=== PATIENT | female | born 1995 | race Caucasian/White ===

== ENCOUNTER 2018-05-08 01:02 | Emergency (ER) | payer OTHER, BC ==
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
[2018-05-08 01:24] VITALS: BP 142/82; PULSE 98; TEMP 97.6; BMI 32.3
[2018-05-08] MEDS ORDERED: KETOROLAC TROMETHAMINE 60 MG/2 ML VIAL IM ONE (01:54)
[2018-05-08] MEDS ORDERED: KETOROLAC TROMETHAMINE 60 MG/2 ML VIAL ONE (02:17)
== END 2018-05-08 06:00 | disposition home or self-care (01) ==
LOC: JER 01:02
PROC: 3E0233Z Introduction of Anti-inflammatory into Muscle, Percutaneous Approach (ICD-10-PCS; principal; 2018-05-08)
DX: S13.4XXA Sprain of ligaments of cervical spine, initial encounter (principal); V43.52XA Car driver injured in collision with other type car in traffic accident, initial encounter; Y92.414 Local residential or business street as the place of occurrence of the external cause; Y93.89 Activity, other specified; Y99.8 Other external cause status
CPT/HCPCS: 70450-TC; 72125-TC; 73030-TC-LT-FY; 73523-TC-FY; 73562-TC-LT-FY; 84703; 99281-25

== ENCOUNTER 2019-07-12 10:59 | Inpatient (IN) | payer BC ==
[2019-07-07 15:21] VITALS: BMI 40.3
[2019-07-12 11:45] LABS: BASO % 0.4 % (0-2.0); EOS % 0.6 % (0-4.5); HEMATOCRIT 40.1 % (32.4-45.2); HEMOGLOBIN 12.6 GM/dl (10.7-15.3); LYMPH % 23.4 % (8-40); MCH 25.3 pg (25.7-33.7); MCHC 31.5 g/dl (32.0-36.0); MEAN CELL VOLUME 80.4 fl (80-96); MEAN PLT VOLUME 8.8 fl (7.5-11.1); MONO % 5.7 % (3.8-10.2); NEUT % 69.9 % (42.8-82.8); PLATELET COUNT 344 K/MM3 (134-434); RBC 4.99 M/mm3 (3.60-5.2); RDW 13.2 % (11.6-15.6); WHITE BLOOD COUNT 10.7 K/mm3 (4.0-10.8)
[2019-07-12 11:49] LABS: INR 1.34 (0.82-1.09); PROTHROMBIN TIME (PATIENT) 14.9 SEC (10.2-13.0)
[2019-07-12 11:54] LABS: ALBUMIN 3.8 g/dl (3.4-5.0); CALCIUM 8.6 mg/dl (8.5-10); CREATININE 0.5 mg/dl (0.55-1.3); TOT PROT 7.1 g/dl (6.4-8.2)
--- NOTE | 2019-07-12 12:11 | EKG ---
Test Reason : Blood Pressure : / mmHG Vent. Rate : 079 BPM Atrial Rate : 079 BPM P-R Int : 142 ms QRS Dur : 094 ms QT Int : 388 ms P-R-T Axes : 037 055 024 degrees QTc Int : 444 ms NORMAL SINUS RHYTHM WITH SINUS ARRHYTHMIA NORMAL ECG NO PREVIOUS ECGS AVAILABLE Confirmed by Anamaria Siddiqui ([id number]) on 07/12/2019 12:10:54 PM Referred By: Francisco Lopez Confirmed By:Anamaria Siddiqui
[2019-07-12 12:16] LABS: EPITHELIAL CELLS MODERATE /hpf
[2019-07-12] MEDS ORDERED: BUPIVACAINE HCL/PF 2.5 MG/ML - 30 ML VIAL IJ ONE (14:21)
[2019-07-12] MEDS ORDERED: MIDAZOLAM HCL 2 MG/2 ML SINGLE DOSE VIAL ONE ×2 (14:32→16:59)
[2019-07-12] MEDS ORDERED: SODIUM CHLORIDE 0.9% P/F 10 ML VIAL IJ ONE (14:32)
[2019-07-12] MEDS ORDERED: BUPIVACAINE HCL/PF 0.5% (5 MG/ML) 30 ML VIAL IJ ONE (14:32)
[2019-07-12] MEDS ORDERED: PROPOFOL 20 ML ONE (15:10)
[2019-07-12] MEDS ORDERED: ROCURONIUM BROMIDE 50 MG/5 ML SYRINGE ONE (15:12)
[2019-07-12] MEDS ORDERED: ONDANSETRON 4 MG/2 ML VIAL IVPUSH PRN ×2 (15:50→16:53)
[2019-07-12] MEDS ORDERED: PROMETHAZINE HCL 25 MG/1 ML VIAL IVPUSH PRN (15:50)
[2019-07-12] MEDS ORDERED: ACETAMINOPHEN 1000 MG/100 ML VIAL (NON FORMULARY) IVPB ONE (15:51)
[2019-07-12] MEDS ORDERED: BUPIVACAINE HCL/PF 0.25% (2.5MG/ML) 10 ML VIAL IJ ONE ×2 (15:52→16:38)
[2019-07-12] MEDS ORDERED: LACTATED RINGERS SOLUTION 1,000 ML IV SCH (16:00)
[2019-07-12] MEDS ORDERED: GLYCOPYRROLATE 0.2 MG/1 ML VIAL ONE (16:36)
[2019-07-12] MEDS ORDERED: NEOSTIGMINE METHYLSULFATE 0.5 MG/ML - 10 ML MDV ONE (16:36)
[2019-07-12] MEDS ORDERED: ACETAMINOPHEN INJECTION 100 ML IVPB ONE (16:44)
[2019-07-12] MEDS ORDERED: METOCLOPRAMIDE HCL INJECTION 10 MG/2 ML VIAL ONE (16:45)
[2019-07-12] MEDS ORDERED: HYDROmorphone HCL CARPU-JECT 1 MG/1 ML DISP.SYRIN IM PRN (16:53)
[2019-07-12] MEDS ORDERED: SODIUM CHLORIDE 1,000 ML IV SCH (17:00)
[2019-07-12] MEDS ORDERED: SCOPOLAMINE HYDROBROMIDE 1 PATCH PATCH.TD72 ONE (17:04)
--- NOTE | 2019-07-12 17:13 | OP ---
Operative Note - Note: Operative Date: 07/12/19 Pre-Operative Diagnosis: Morbid Obesity Operation: Laparoscopic Vertical Sleeve Gastrectomy. Diagnostic Laparoscopy Findings: Greater curve sleeve gastrectomy performed with #[address] Post-Operative Diagnosis: Same as Pre-op Surgeon: Francisco Lopez Freelance Web Designer: Sergio Meraz Anesthesia: General Specimens Removed: Greater curve of stomach Estimated Blood Loss (mls): 30 Operative Report Dictated: Yes
[2019-07-12] MEDS ORDERED: SCOPOLAMINE HYDROBROMIDE 1 PATCH PATCH.TD72 TD SCH (17:15)
[2019-07-12] MEDS ORDERED: HYDROmorphone HCL CARPU-JECT 1 MG/1 ML DISP.SYRIN IVPUSH PRN (17:16)
[2019-07-12] MEDS: HYDROmorphone HCl 2 MG/ML VIAL ONE ×2 (17:35→17:45)
[2019-07-12] MEDS: METOCLOPRAMIDE HCL INJECTION 10 MG/2 ML VIAL IVPUSH SCH ×2 (17:40→22:02)
[2019-07-12 17:42] LABS: HEMATOCRIT 37.4 % (32.4-45.2); HEMOGLOBIN 12.2 GM/dl (10.7-15.3); MCHC 32.6 g/dl (32.0-36.0); MEAN CELL VOLUME 79.9 fl (80-96); MEAN PLT VOLUME 8.9 fl (7.5-11.1); PLATELET COUNT 279 K/MM3 (134-434); RBC 4.68 M/mm3 (3.60-5.2); RDW 12.9 % (11.6-15.6); WHITE BLOOD COUNT 11.8 K/mm3 (4.0-10.8)
[2019-07-12 17:48] LABS: ALBUMIN 3.6 g/dl (3.4-5.0); BILIRUBIN,TOTAL 0.8 mg/dl (0.2-1); CALCIUM 8.2 mg/dl (8.5-10); CREATININE 0.5 mg/dl (0.55-1.3); POTASSIUM 3.7 mmol/L (3.5-5.1); TOT PROT 6.7 g/dl (6.4-8.2)
--- NOTE | 2019-07-12 20:59 | OP ---
DATE OF OPERATION: 07/12/2019 PREOPERATIVE DIAGNOSIS: Morbid obesity. POSTOPERATIVE DIAGNOSIS: Morbid obesity. PROCEDURE PERFORMED: 1. Laparoscopic vertical sleeve gastrectomy. 2. Diagnostic laparoscopy. OPERATING SURGEON: Francisco Lopez MD CUT ROLL MACHINE OPERATOR: Sergio Meraz MD ANESTHESIA: General. EXPECTED BLOOD LOSS: 30 mL. DISPOSITION: Patient transferred to recovery room in stable condition. DESCRIPTION OF OPERATIVE PROCEDURE: The patient was brought into the operating room, placed on the OR table in supine position. All precautions were taken initially including padding for the back and the feet, and Venodyne boots were placed on both lower extremities. At that point, the abdomen was prepped and draped in the usual manner. A Veress needle was placed in the left upper quadrant, and a pneumoperitoneum was established. Under direct vision with a laparoscopic camera, a number 5 bladeless trocar was then placed in the left upper quadrant. Through that laparoscopic trocar, a laparoscopic camera was placed. Under direct vision, a number 15 trocar was placed in the midline above the umbilicus, and this was a bladeless trocar. This was followed by a number 5 bladeless trocar in the right upper quadrant and a number 5 bladeless trocar below the left costal margin. A Bianca liver retractor was then placed in the epigastrium to retract the left lobe of the liver. The patient was then placed in a 20-degree reverse Trendelenburg position by Anesthesia. Pylorus was noted on the distal stomach, and from that area, 6 cm were measured proximally. Here, the operating surgeon lifted the stomach wall toward the anterior abdominal wall as the sales operations assistant surgeon retracted the gastrocolic ligament inferiorly. The LigaSure device was used to dissect the gastrocolic ligament and the short gastric vessels off the greater curve of the stomach. This continued in the superior and vertical direction until the final short gastric vessels between the superior pole, spleen, and the proximal fundus were divided. At this juncture, Anesthesia advanced into the stomach and into the antrum of the stomach a number 36 bougie. With the bougie held along the lesser curvature, a series of doug was performed with the first two being black load doug 6 cm in length along the bougie. This was then followed by a series of purple doug, also 6 cm in length and also along the bougie until a final staple was fired in the left upper quadrant, and the greater curve was now completely detached from the lesser curve. It should be noted that prior to firing each staple, both the anterior and posterior post were checked that they were equal and the area of the esophagogastric junction approximately 1.5 cm of serosa remained on the anterior and posterior surfaces. There was noted to be some minor oozing from the staple line on the initial firing of the staple, and the Endostitch was used to overthrow the staple line here. Once that was done, there appeared to be no bleeding. then placed around the staple line. Anesthesia inserted air into the bougie, which showed the entire stomach distended down to the pylorus. No obstruction and no leaks were noted. At that juncture, Surgicel was placed along the staple line from the top to the bottom or superior to inferior, and also, Surgicel was placed in the bed of the spleen for further hemostasis. The resected greater curve was now removed through the number-15 trocar site, and the number-15 trocar site was closed with Endoclose device to prevent internal hernia and prevent bleeding. Under direct vision, all trocars removed and pneumoperitoneum was released. The greater curvature specimen was sent off the field as a specimen to Pathology. All trocar sites then received 0.25% Marcaine. The number 15 midline site was first closed with 3-0 Vicryl in the subcutaneous tissue. Then, all trocar sites were closed with 4-0 Biosyn in a subcuticular fashion. Dressings were applied. Patient awoke from anesthesia and transferred out of the operating room to the recovery room in stable condition. Iris [id number]
[2019-07-12] MEDS: FAMOTIDINE 20 MG/50 ML IVPB 20 MG/50 ML MG IVPB SCH (21:17)
[2019-07-12 22:26] LABS: HEMATOCRIT 40.8 % (32.4-45.2); HEMOGLOBIN 13.3 GM/dl (10.7-15.3); MCH 25.9 pg (25.7-33.7); MCHC 32.7 g/dl (32.0-36.0); MEAN CELL VOLUME 79.2 fl (80-96); MEAN PLT VOLUME 8.7 fl (7.5-11.1); PLATELET COUNT 327 K/MM3 (134-434); RBC 5.14 M/mm3 (3.60-5.2); RDW 12.8 % (11.6-15.6); WHITE BLOOD COUNT 15.6 K/mm3 (4.0-10.8)
[2019-07-12 22:50] LABS: ALBUMIN 3.9 g/dl (3.4-5.0); BILIRUBIN,TOTAL 0.8 mg/dl (0.2-1); CALCIUM 8.6 mg/dl (8.5-10); CREATININE 0.5 mg/dl (0.55-1.3); POTASSIUM 4.1 mmol/L (3.5-5.1); TOT PROT 7.3 g/dl (6.4-8.2)
[2019-07-13] MEDS: METOCLOPRAMIDE HCL INJECTION 10 MG/2 ML VIAL IVPUSH SCH ×2 (06:30→10:15)
[2019-07-13 07:00] VITALS: BP 123/57; PULSE 76; TEMP 98.8
[2019-07-13 08:05] LABS: HEMATOCRIT 37.7 % (32.4-45.2); HEMOGLOBIN 12.4 GM/dl (10.7-15.3); MCH 26.2 pg (25.7-33.7); MCHC 32.9 g/dl (32.0-36.0); MEAN CELL VOLUME 79.6 fl (80-96); MEAN PLT VOLUME 9.4 fl (7.5-11.1); PLATELET COUNT 326 K/MM3 (134-434); RBC 4.74 M/mm3 (3.60-5.2); RDW 12.9 % (11.6-15.6); WHITE BLOOD COUNT 13.4 K/mm3 (4.0-10.8)
--- NOTE | 2019-07-13 08:11 | PN ---
Progress Note, Physician Chief Complaint: AWAKE ALERT POST OP DAY 1 DENIES FEVER OR CHILLS - Current Medication List Current Medications: Active Medications Enoxaparin Sodium (Lovenox -) 40 mg SQ DAILY [facility] Hydromorphone HCl (Dilaudid Injection -) 1 mg IM Q4H PRN PRN Reason: PAIN LEVEL 1-5 Last Admin: 07/13/19 06:30 Dose: 1 mg Hydromorphone HCl (Dilaudid Injection -) 0.5 mg IVPUSH [id number] PRN PRN Reason: PAIN-PACU ORDER X 4 DOSES ONLY Last Admin: 07/12/19 22:02 Dose: 0.5 mg Lactated Ringer's (Lactated Ringers Solution) 1,000 mls @ 125 mls/hr IV ASDIR [facility] Famotidine/Sodium Chloride (Pepcid 20 Mg Premixed Ivpb -) 20 mg in 50 mls @ 100 mls/hr IVPB BID [facility] Last Admin: 07/12/19 21:17 Dose: 100 mls/hr Sodium Chloride (Normal Saline -) 1,000 mls @ 150 mls/hr IV [facility] Last Admin: 07/12/19 18:00 Dose: 200 mls Metoclopramide HCl (Reglan Injection -) 10 mg IVPUSH Q6H [facility] Last Admin: 07/13/19 06:30 Dose: 10 mg Ondansetron HCl (Zofran Injection) 4 mg IVPUSH Q4H PRN PRN Reason: NAUSEA AND/OR VOMITING Promethazine HCl (Phenergan Injection -) 12.5 mg IVPUSH Q6H PRN PRN Reason: NAUSEA-FOR RESCUE AFTER 15 MIN Scopolamine HBr (Transderm-Scop -) 1 patch TD Q72H [facility] Last Admin: 07/12/19 17:05 Dose: 1 patch - Objective Vital Signs: Vital Signs Temperature 98.8 F 07/13/19 06:00 Pulse Rate 76 07/13/19 06:00 Respiratory Rate 18 07/13/19 06:00 Blood Pressure 123/57 L 07/13/19 06:00 O2 Sat by Pulse Oximetry (%) 99 07/13/19 06:00 Constitutional: Yes: Mild Distress Neck: Yes: WNL Cardiovascular: Yes: WNL Respiratory: Yes: WNL Gastrointestinal: Yes: Soft Genitourinary: Yes: WNL Musculoskeletal: Yes: WNL Extremities: Yes: WNL Edema: No Peripheral Pulses WNL: Yes Integumentary: Yes: WNL Wound/Incision: Yes: Clean/Dry Neurological: Yes: WNL ...Motor Strength: WNL Psychiatric: Yes: WNL Labs: INR, PTT INR 1.34 (0.82-1.09) H 07/12/19 11:25 Problem List - Problems (1) S/P laparoscopic sleeve gastrectomy Code(s): Z98.84 - BARIATRIC SURGERY STATUS Assessment/Plan POD 1 TOLERATING BARIATRIC DIET LABS REVIEWED DC PLANNING SEE DR HOU AND JONO 1 WEEK
[2019-07-13 08:13] LABS: ALBUMIN 3.5 g/dl (3.4-5.0); BILIRUBIN,TOTAL 0.8 mg/dl (0.2-1); CALCIUM 8.4 mg/dl (8.5-10); CREATININE 0.4 mg/dl (0.55-1.3); POTASSIUM 4.1 mmol/L (3.5-5.1); TOT PROT 6.7 g/dl (6.4-8.2)
--- NOTE | 2019-07-13 09:13 | DS ---
Physical Exam: SUBJECTIVE: Patient seen and examined OBJECTIVE: Vital Signs Temperature 98.8 F 07/13/19 06:00 Pulse Rate 76 07/13/19 06:00 Respiratory Rate 18 07/13/19 06:00 Blood Pressure 123/57 L 07/13/19 06:00 O2 Sat by Pulse Oximetry (%) 99 07/13/19 06:00 PHYSICAL EXAM GENERAL: Awake, alert, and fully oriented, in no acute distress. HEAD: Normal with no signs of trauma. EYES: PERRL, sclera anicteric, conjunctiva clear. NECK: Normal ROM, supple without lymphadenopathy, JVD, or masses. LUNGS: Breathing comfortably, No accessory muscle use. ABDOMEN: Soft, mild epigastric tenderness, not distended, no guarding, no rebound, no masses. No organomegaly. MUSCULOSKELETAL: Normal ROM at all joints. No bony deformities or tenderness. No CVA tenderness. UPPER EXTREMITIES: warm, well-perfused. No cyanosis. Cap refill <2 seconds. No peripheral edema. LOWER EXTREMITIES: warm, well-perfused. No calf tenderness. No peripheral edema. NEUROLOGICAL: Normal speech, gait not observed. PSYCH: Cooperative. Good eye contact. Appropriate mood and affect. SKIN: Warm, dry, normal turgor, no rashes or lesions noted. LABS CBC,CMP WBC 13.4 K/mm3 (4.0-10.8) H 07/13/19 06:45 RBC 4.74 M/mm3 (3.60-5.2) 07/13/19 06:45 Hgb 12.4 GM/dl (10.7-15.3) 07/13/19 06:45 Hct 37.7 % (32.4-45.2) 07/13/19 06:45 MCV 79.6 fl (80-96) L 07/13/19 06:45 MCH 26.2 pg (25.7-33.7) 07/13/19 06:45 MCHC 32.9 g/dl (32.0-36.0) 07/13/19 06:45 RDW 12.9 % (11.6-15.6) 07/13/19 06:45 Plt Count 326 K/MM3 (134-434) 07/13/19 06:45 MPV 9.4 fl (7.5-11.1) 07/13/19 06:45 Absolute Neuts (auto) 7.5 K/mm3 07/12/19 11:25 Neutrophils % 69.9 % (42.8-82.8) 07/12/19 11:25 Lymphocytes % 23.4 % (8-40) 07/12/19 11:25 Monocytes % 5.7 % (3.8-10.2) 07/12/19 11:25 Eosinophils % 0.6 % (0-4.5) 07/12/19 11:25 Basophils % 0.4 % (0-2.0) 07/12/19 11:25 Sodium 135 mmol/L (136-145) L 07/13/19 06:45 Potassium 4.1 mmol/L (3.5-5.1) 07/13/19 06:45 Chloride 107 mmol/L (98-107) 07/13/19 06:45 Carbon Dioxide 20 mmol/L (21-32) L 07/13/19 06:45 Anion Gap 8 MMOL/L (8-16) 07/13/19 06:45 BUN 8.0 mg/dl (7-18) 07/13/19 06:45 Creatinine 0.4 mg/dl (0.55-1.3) L 07/13/19 06:45 Est GFR (CKD-EPI)AfAm 172.56 07/13/19 06:45 Est GFR (CKD-EPI)NonAf 148.89 07/13/19 06:45 Random Glucose 106 mg/dl (74-106) 07/13/19 06:45 Calcium 8.4 mg/dl (8.5-10) L 07/13/19 06:45 Total Bilirubin 0.8 mg/dl (0.2-1) 07/13/19 06:45 AST 17 U/L (15-37) 07/13/19 06:45 ALT 25 U/L (13-61) 07/13/19 06:45 Alkaline Phosphatase 54 U/L (45-117) 07/13/19 06:45 Total Protein 6.7 g/dl (6.4-8.2) 07/13/19 06:45 Albumin 3.5 g/dl (3.4-5.0) 07/13/19 06:45 HOSPITAL COURSE: Date of Admission:07/12/19 Date of Discharge: 07/13/19 HOSPITAL COURSE: The patient was admitted to the Med-Surg Unit after elective bariatric surgery. Now, s/p laparoscopic vertical sleeve gastrectomy. The day of surgery, the patient ambulated the hallways with assistance. The patient was monitored with remote tele/continuous pulse ox. Narcotic and non-narcotic pain management control was achieved with oral and IV pain control. Upper GI series was obtained the following morning and no leak, extravastion or gastric outlet obstruction. Started on a Bariatric Stage 1 diet and tolerated well. Malena-operative IV ABX were administered in addition to GI prophylaxis. DVT prophylaxis was achieved with SCDs and early ambulation. The discharge instructions and an oral pain management plan were reviewed with the patient. All questions answered. Above plan discussed with Dr. Lopez and agreed. Minutes to complete discharge: 20 Visit type - Case Type Case Type: Scheduled - Emergency Emergency Visit: No - New patient This patient is new to me today: Yes Date on this admission: 07/13/19 - Critical Care Critical Care patient: No
--- NOTE | 2019-07-13 09:18 | PN ---
Progress Note (short form) - Note Progress Note: 23G POD1 s/p lap gastric sleeve resection under GA-ETT. Pt states that pain is well controlled and reports no anesthetic complications. AVSS. Continue current regimen.
[2019-07-13] MEDS: FAMOTIDINE 20 MG/50 ML IVPB 20 MG/50 ML MG IVPB SCH (09:20)
[2019-07-13] MEDS ORDERED: ENOXAPARIN NA (PORCINE) 40 MG/0.4 ML DISP.SYRIN SQ SCH (10:00)
--- NOTE | 2019-07-13 10:52 | PN ---
Progress Note (short form) - Note Progress Note: POD#1 Afebrile; VSS P-76 Pt doing well OOB in chair No N/V UGI- no leak, no obstruction noted WBC-13.4 (decreased) H/H-12.4/37.7 P- D/C pt home Clear liquids- 2 oz po 5-6 times per day F/U in 9 days
--- NOTE | 2019-07-15 15:59 | PATH ---
Surgical Pathology Report Patient Name: CASSIDY LIU Med. Rec. #: [id number] /Age/Gender: 1995 (Age: 23) / F Account: [id number] Location: [facility] Taken: 07/12/2019 Received: 07/12/2019 Reported: 07/15/2019 Physicians: Francisco Lopez M.D. Specimen(s) Received GREATER CURVATURE OF STOMACH Clinical History Morbid obesity Final Diagnosis GREATER CURVATURE OF STOMACH, LAPAROSCOPIC GASTRIC SLEEVE EXCISION: PORTION OF STOMACH SHOWING MILD CHRONIC MUCOSAL INFLAMMATION. IMMUNOSTAIN IS NEGATIVE FOR H. PYLORI ORGANISMS. Electronically Signed Annie Hoskins M.D. Gross Description Received in formalin, labeled "greater curvature of stomach," is an 86 gram, 18.0 x 3.0 x 2.7 cm. portion of stomach with a stapled margin of resection. The serosa is bhatia-malone with minimal attached fat. The mucosa is bhatia-pink with normal folds. No mucosal masses are identified. Rn Supplemental sections are submitted in one cassette. /07/14/2019 [facility]07/14/2019
== END 2019-07-13 11:19 | disposition home or self-care (01) | DRG 621 ==
LOC: FM/S 10:59
PROVIDERS: ADMIT Surgery; ATTEND Surgery
PROC: 0DB64Z3 Excision of Stomach, Percutaneous Endoscopic Approach, Vertical (ICD-10-PCS; principal; 2019-07-12 15:24)
DX: E66.01 Morbid (severe) obesity due to excess calories (principal); Z68.41 Body mass index [BMI] 40.0-44.9, adult
CPT/HCPCS: 36415; 74240-TC-FY; 80053; 81003; 81015; 84703; 85025; 85027; 85610; 86850; 86900; 86901; 93005; 94760; J0131; J7030; Q9967

== ENCOUNTER 2022-06-07 00:04 | Emergency (ER) | payer BC ==
[2022-06-07 00:11] VITALS: BP 120/79; PULSE 64; RESP 18; TEMP 97.5; BMI 32.3
[2022-06-07] MEDS ORDERED: SODIUM CHLORIDE 0.9% 1000 ML INFUS.BAG IV ONE (00:20)
[2022-06-07] MEDS ORDERED: ACETAMINOPHEN 1000 MG/100 ML BAG IVPB ONE (00:20)
[2022-06-07] MEDS ORDERED: ONDANSETRON 4 MG/2 ML VIAL IVPUSH ONE (00:20)
[2022-06-07] MEDS ORDERED: FAMOTIDINE 20 MG/50 ML IVPB 20 MG/50 ML MG IVPB ONE ×2 (00:20→00:59)
[2022-06-07] MEDS ORDERED: ACETAMINOPHEN INJECTION 100 ML IVPB ONE (00:58)
[2022-06-07] MEDS ORDERED: ONDANSETRON 4 MG/2 ML VIAL ONE (00:59)
[2022-06-07 01:29] LABS: BASO % 0.7 % (0-2.0); EOS % 0.6 % (0-4.5); HEMATOCRIT 37.9 % (32.4-45.2); HEMOGLOBIN 12.4 GM/dL (10.7-15.3); MCH 26.6 pg (25.7-33.7); MCHC 32.6 g/dl (32.0-36.0); MEAN CELL VOLUME 81.5 fl (80-96); MEAN PLT VOLUME 8.9 fl (7.5-11.1); MONO % 5.2 % (3.8-10.2); NEUT % 62.5 % (42.8-82.8); PLATELET COUNT 290 10^3/uL (134-434); RBC 4.65 M/mm3 (3.60-5.2)
[2022-06-07 01:38] LABS: INR 1.09 (0.83-1.09); PROTHROMBIN TIME (PATIENT) 12.6 SEC (9.7-13.0)
[2022-06-07 01:40] LABS: ACTIVATED PTT 33.6 SECONDS (25.2-36.5)
[2022-06-07 02:09] LABS: CHLORIDE 106 mmol/L (98-107); SODIUM 140 mmol/L (136-145)
[2022-06-07 02:11] LABS: CALCIUM 8.6 mg/dL (8.5-10.1)
[2022-06-07 02:12] LABS: ALBUMIN 3.6 g/dl (3.4-5.0); ANION GAP 7 MMOL/L (8-16); BLOOD UREA NITROGEN 10.2 mg/dL (7-18); CO2 27 mmol/L (21-32); GLUCOSE,RANDOM 94 mg/dL (74-106); LIPASE 146 U/L (73-393); MAGNESIUM 2.2 mg/dL (1.8-2.4)
[2022-06-07 02:14] LABS: CREATININE 0.6 mg/dL (0.55-1.3); SGOT/AST 50 U/L (15-37)
[2022-06-07 02:15] LABS: SGPT/ALT 35 U/L (13-61)
[2022-06-07 02:16] LABS: BILIRUBIN,TOTAL 0.3 mg/dL (0.2-1)
[2022-06-07 02:19] LABS: URINE APPEARANCE CLOUDY; URINE BILIRUBIN NEGATIVE (NEGATIVE); URINE COLOR YELLOW; URINE GLUCOSE (UA) NEGATIVE (NEGATIVE); URINE KETONE NEGATIVE (NEGATIVE); URINE LEUK ESTERASE NEGATIVE (NEGATIVE); URINE NITRITE NEGATIVE (NEGATIVE); URINE PROTEIN NEGATIVE (NEGATIVE); URINE UROBILINOGEN 0.2 mg/dL (0.2-1.0)
[2022-06-07 02:33] LABS: ALK PHOS 46 U/L (45-117)
[2022-06-07 07:39] LABS: URINE RBC 47.8 /uL (0-23.9); URINE WBC 8.4 /uL (0-25.8)
[2022-06-07 07:40] LABS: EPI CELLS 12.6 /uL (0-25.1); HYALINE CASTS 0.25 /uL (0-3.1); URINE BACTERIA 769.5 /uL (0-1359)
== END 2022-06-07 04:11 | disposition home or self-care (01) ==
LOC: JER 00:04
PROC: 3E033GC Introduction of Other Therapeutic Substance into Peripheral Vein, Percutaneous Approach (ICD-10-PCS; principal; 2022-06-07)
DX: R07.9 Chest pain, unspecified (principal); R10.84 Generalized abdominal pain
CPT/HCPCS: 0241U-QW; 36415; 71045-TC-FY; 74177-TC; 80053; 81003; 83690; 83735; 84484; 84703; 85025; 85379; 85610; 85730; 86850; 86900; 86901; 93005; 93010; 99285-25